=== PATIENT | female | born 1955 | race Caucasian/White ===

== ENCOUNTER 2017-03-25 09:32 | Inpatient (IN) ==
[2017-03-26] MEDS ORDERED: Insulin DETEMIR 100 UNIT/ML per UNIT SQ ONE (01:30)
[2017-03-26 05:56] LABS: Basophils % 0.4 %; Eosinophils # 0.4 K/mcL (0.0-0.6); Hemoglobin 10.2 g/dL (11.5-15.4); Immature Granulocytes % 0.7 % (0-4); Lymphocytes # 2.8 K/mcL (0.6-4.6); Lymphocytes % 31.1 %; Mean Corpuscular HGB Conc 32.9 g/dL (31.6-35.5); Mean Corpuscular Hemoglobin 28.7 pg (28.0-33.3); Mean Corpuscular Volume 87.1 fL (83.0-100.0); Mean Platelet Volume 10.7 fL (9.4-12.4); Monocytes # 0.8 K/mcL (0.0-1.3); Monocytes % 8.4 %; Platelet Count 278 K/mcL (140-400); Red Blood Count 3.56 M/mcL (3.82-4.97); Red Cell Distribution Width 14.9 % (11.5-14.5); Segmented Neutrophils % 55.4 %
[2017-03-26 06:07] LABS: Prothrombin Time 10.8 Seconds (9.4-12.1)
[2017-03-26 06:08] LABS: BUN/Creatinine Ratio 17 (6-26); Blood Urea Nitrogen 13 mg/dL (7-20); Carbon Dioxide 26 mEq/L (19-29); Chloride 100 mEq/L (98-109); Glucose 315 mg/dL (70-99); Osmolality,Calculated 290 (280-300); Potassium 4.4 mEq/L (3.5-4.5); Sodium 134 mEq/L (136-145); eGFR For African Americans > 60 (> 60); eGFR For Non-African Americans > 60 (> 60)
[2017-03-26] MEDS: Aspirin Enteric Coated 81 MG Tablet PO SCH (08:35)
[2017-03-26] MEDS: Insulin LISPRO 300 UNITS/3 ML VIAL SQ SCH ×4 (08:35→21:18)
[2017-03-26] MEDS: *HR* Enoxaparin 40 MG/0.4 ML SYRINGE SQ SCH (08:39)
--- NOTE | 2017-03-26 13:28 | Physical Med Progress Note ---
Date of Encounter: 03/26/17 Time of Encounter: 13:22 Physical Medicine-PN: Subj Interval history: PMR PCC Note Patient admitted for rehabilitation following NSTEMI. Patient is also s/p a left transtibial amputation. Patient was admitted for medical deconditioning. Patient is under isolation due to MRSA. Patient has a decubitus ulcer on the right heel. Patient is min A for bed mobility. She is max A for ambulation. Will focus on transfers and wheelchair mobility. Will assess and determine discuss charge needs. - Constitutional Vitals: Vital Signs Temp Pulse Resp BP Pulse Ox 03/26/17 11:08 83 18 102/54 96 03/26/17 08:00 98.4 F 83 18 102/54 96 03/26/17 04:40 98.3 F 88 18 108/81 99 03/26/17 03:04 96 03/25/17 23:51 98.3 F 82 18 103/65 96 Intake and Output 03/25/17 03/26/17 03/26/17 23:59 07:59 15:59 Intake Total 440 / 440 Output Total 400 / 400 Balance 40 / 40 Intake: Oral 440 / 440 Output: Urine 400 / 400 Other: Meal Lunch Percent of Meal Consumed 100% Stool Size Small Moderate Stool Consistency soft soft Stool Characteristics Normal for Patient Stool Color Brown Brown # Voids 1 1 # Bowel Movements 1 Weight 58.513 kg Blood Glucose* 220 Patient Weight 03/26/17 23:59 Weight 58.513 kg Physical Medicine-PN: Obj Data - Labs CBC & Chem 7: 03/26/17 05:20 03/26/17 05:20 Labs: Laboratory Results - last 24 hr 03/26/17 03/26/17 03/26/17 02:44 05:20 05:20 WBC 9.0 RBC 3.56 L Hgb 10.2 L Hct 31.0 L MCV 87.1 MCH 28.7 MCHC 32.9 RDW 14.9 H Plt Count 278 MPV 10.7 Immature Gran % 0.7 Seg Neutrophils % 55.4 Lymphocytes % 31.1 Monocytes % 8.4 Eosinophils % 4.0 Basophils % 0.4 Neutrophils # 5.0 Lymphocytes # 2.8 Monocytes # 0.8 Eosinophils # 0.4 Basophils # 0.0 PT INR APTT 29.1 Sodium Potassium Chloride Carbon Dioxide BUN Creatinine Est GFR ( Amer) Est GFR (Non-Af Amer) BUN/Creatinine Ratio Glucose POC Glucose 350 H Calculated Osmolality Calcium 03/26/17 03/26/17 03/26/17 05:20 05:20 07:21 WBC RBC Hgb Hct MCV MCH MCHC RDW Plt Count MPV Immature Gran % Seg Neutrophils % Lymphocytes % Monocytes % Eosinophils % Basophils % Neutrophils # Lymphocytes # Monocytes # Eosinophils # Basophils # PT 10.8 INR 1.0 APTT Sodium 134 L Potassium 4.4 Chloride 100 Carbon Dioxide 26 BUN 13 Creatinine 0.76 Est GFR ( Amer) > 60 Est GFR (Non-Af Amer) > 60 BUN/Creatinine Ratio 17 Glucose 315 H POC Glucose 220 H Calculated Osmolality 290 Calcium 9.0 03/26/17 10:26 WBC RBC Hgb Hct MCV MCH MCHC RDW Plt Count MPV Immature Gran % Seg Neutrophils % Lymphocytes % Monocytes % Eosinophils % Basophils % Neutrophils # Lymphocytes # Monocytes # Eosinophils # Basophils # PT INR APTT Sodium Potassium Chloride Carbon Dioxide BUN Creatinine Est GFR ( Amer) Est GFR (Non-Af Amer) BUN/Creatinine Ratio Glucose POC Glucose 38 L* Calculated Osmolality Calcium - ABG Interpretation ABG results: PT/INR, D-dimer PT 10.8 Seconds (9.4-12.1) 03/26/17 05:20 Consult Discharge Plan - Plan Referrals: Sara Asher MD [Primary Care Provider] -
[2017-03-26] MEDS: *HR* HYDROcodone/Acet 5/325 mg TABLET PO PRN (13:54)
--- NOTE | 2017-03-26 13:55 | Psychological Evaluation ---
Date of Encounter: 03/26/17 Time of Encounter: 09:30 History of Present Illness History of present illness: Ms. Mantilla is a 61 year old female who was admitted after a BKA. The patient underwent 4 surgeries during a 4 tanisha period. She underwent BKA on 03/02/17. PMH includes insulin dependent diabetes, cardiac issues, and recent angioplasty. 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 She has 1 daughter. [place] [place]Emotional Assessment - Emotional Status Additional Findings: The patient was alert and oriented. Recent and remote memories were intact. The patient presented a logical and coherent history Mrs. Mantilla became tearful during the clinical interview secondary to the recent and extensive changes in her lifestyle. She did not want to consider medication or psychotherapy. Assessment & Plan - Prognosis Prognosis: Good
--- NOTE | 2017-03-26 14:07 | Internal Med History&Physical ---
Date of Encounter: 03/26/17 Time of Encounter: 14:04 Assessment and Plan (1) STEMI (ST elevation myocardial infarction) Current visit: Yes Status: Acute The patient 2 weeks after BK amputation approximately suffered a myocardial infarction. This added to her deconditioning Qualifiers: Involved coronary artery: unspecified coronary artery Qualified Code(s): I21.3 - ST elevation (STEMI) myocardial infarction of unspecified site (2) S/P BKA (below knee amputation) Current visit: Yes Status: Acute Patient has vascular disease due to diabetes and lost the leg due to chronic infection. Qualifiers: Laterality: left Qualified Code(s): Z89.512 - Acquired absence of left leg below knee (3) MRSA (methicillin resistant staph aureus) culture positive Current visit: No Status: Acute This was in the right heel. (4) Diabetes Current visit: Yes Status: Acute Were aware of it and following blood sugars. They seem to be labile Qualifiers: Diabetes mellitus type: type 1 Diabetes mellitus complication status: with circulatory complication Diabetes mellitus complication detail: with other circulatory complications Qualified Code(s): E10.59 - Type 1 diabetes mellitus with other circulatory complications Internal Medicine - H&P: HPI Chief complaint: Patient undergone a BK amputation 2 weeks prior to the last presentation. Admitted From: Hospital to Hospital Transfer Plans for Post Hospital Care: Home History of present illness: Ms. Mantilla is a 61 year old female As mentioned the patient had several weeks prior to this presentation a BK amputation due to vascular disease probably complications of diabetes. The patient then suffered chest pain discomfort was diagnosed with a STEMI. After treatment for that she was very deconditioned and subsequently was sent here for rehabilitation. She has developed a decubitus on the remaining heel and attention is being placed on removing pressure on that. Past Med Surg Social Fam HX - Past Medical History Medical history: coronary artery disease, diabetes, hyperlipidemia, hypertension , myocardial infarction Psychiatric history: no psych history - Past Surgical History Surgical History: angioplasty/stent, coronary bypass (CABG) - Social History Smoking Status: Former smoker Smokeless Tobacco Status: No Alcohol use: none Drug use: none Internal Medicine - H&P: Meds 3 Allergy/AdvReac Type Severity Reaction Status Date / Time Amoxicillin [From Augmentin] AdvReac Gastrointestinal Verified 03/25/17 22:55 Upset clavulanic acid AdvReac Gastrointestinal Verified 03/25/17 22:55 [From Augmentin] Upset Oxycodone AdvReac Gastrointestinal Verified 03/25/17 22:55 Upset All Systems PM: A 10-system review of systems was performed and is negative for pertinent findings except as documented above in the HPI. - Constitutional Constitutional: no anorexia, no chills, no excessive sweating, no fatigue, no fever(s), no falls, no lethargy, no malaise, no night sweats, no weakness, no weight gain, no weight loss - EENT Eyes: no blurry vision, no change in vision, no decreased night vision, no diplopia, no discharge, no dry eye, no floaters, no irritation, no itchy eyes, no loss of peripheral vision, no loss of vision, no pain, no photophobia, no seeing flashes, no spots in vision, no tunnel vision, no other visual disturbances Ears: no decreased hearing, no ear discharge, no ear pain, no tinnitus, no other Nose, mouth and throat: no bleeding gums, no change in voice, no dental pain, no dry mouth, no dysphagia, no epistaxis, no facial pain, no lip swelling, no mouth lesions, no mouth pain, no nasal congestion, no nasal obstruction, no neck mass, no neck pain, no nose pain, no odynophagia, no post-nasal drip, no sinus pain, no sinus pressure, no sore throat, no throat swelling, no tongue swelling - Breasts Breasts: no change in shape, no mass, no pain, no nipple discharge, no skin changes, no swelling - Cardiovascular Cardiovascular ROS IM: no claudication, no diaphoresis, no dyspnea, no dyspnea on exertion, no edema, no irregular heart rhythm, no lightheadedness, no orthopnea, no palpitations, no paroxysmal nocturnal dyspnea, no syncope - Respiratory Respiratory: dyspnea, no cough, no hemoptysis, no dyspnea on exertion, no wheezing, no snoring, no stridor, no pain on inspiration, no chest congestion, no excessive phlegm production, no change in phlegm color, no pain with cough - Gastrointestinal Gastrointestinal: no abdominal pain, no belching, no bloating, no change in bowel habits, no change in stool character, no coffee ground emesis, no constipation, no cramping, no diarrhea, no dyspepsia, no dysphagia, no early satiety, no fecal incontinence, no heartburn, no hematemesis, no hematochezia, no loose stools, no melena, no nausea, no odynophagia, no tenesmus, no vomiting - Genitourinary Genitourinary: no abnormal menses, no abnormal vaginal bleeding, no amenorrhea, no breast change in shape, no breast mass, no breast pain, no breast skin changes, no breast swelling, no change in libido, no change in urinary stream, no difficulty conceiving, no difficulty urinating, no difficulty voiding, no dyspareunia, no dysuria, no flank pain, no genital lesions, no genital pruritis , no hematuria, no hot flashes, no light periods, no menorrhagia, no metrorrhagia (N?), no nipple discharge, no nocturia, no pelvic pain, no post void dribbling, no prolapse symptoms, no sexual dysfunction, no urinary incontinence, no urinary urgency, no vaginal discharge, no vaginal dryness, no vaginal odor, no vaginal pruritis Additional comments: N/A - Musculoskeletal Musculoskeletal ROS IM: no arthralgias, no atrophy, no back pain, no deformity, no joint swelling, no limited range of motion, no muscle cramps, no muscle weakness, no myalgias, no neck pain, no numbness, no stiffness, no tingling Additional comments: left BKA - Integumentary Integumentary IM: non-healing lesions, sores, no erythema, no new lesions, no pruritus, no rash, no skin ulcer, no unusual bruising, no jaundice Additional comments: Decubiti wound heal - Neurological Neurological ROS: no abnormal gait, no abnormal hearing, no abnormal movements, no abnormal speech, no behavioral changes, no burning sensations, no confusion, no convulsions, no disequilibrium, no dizziness, no lack of coordination, no loss of vision, no memory loss, no numbness, no paresthesias, no radicular pain , no restless legs, no tingling, no tremor(s), no vertigo, no weakness - Psychiatric Psychiatric: no abnormal sleep pattern, no anhedonia, no anxiety, no auditory hallucinations, no behavioral changes, no change in appetite, no change in libido, no confusion, no depression, no difficulty concentrating, no hopelessness, no irritability, no memory loss, no mood swings, no panic attacks , no paranoia, no suicidal ideation, no visual hallucinations - Endocrine Endocrine IM: no cold intolerance, no deeping of the voice, no excessive sweating, no fatigue, no flushing, no heat intolerance, no polydipsia, no polyphagia, no polyuria - Hematologic/Lymphatic Hematologic/Lymphatic: no easy bleeding, no easy bruising, no lymphadenopathy - Allergic/Immunologic Allergic/Immunologic: no tongue swelling, no throat swelling, no itchy eyes, no seasonal rhinorrhea, no uticaria, no wheezing, no GI upset with certain foods, no lip swelling - Constitutional Vitals: Temp Pulse Resp BP Pulse Ox 97.7 F 95 18 120/63 18 03/26/17 13:59 03/26/17 13:59 03/26/17 13:59 03/26/17 13:59 03/26/17 13:59 - Head Head exam: Present: atraumatic, normal inspection, normocephalic - Neck Neck exam general surgery: Present: supple, trachea midline. Absent: lymphadenopathy - Respiratory Respiratory exam: Present: CTAB. Absent: accessory muscle use, rales, rhonchi, wheezes - Cardiovascular Cardiovascular exam: Present: RRR, +S1, +S2. Absent: diastolic murmur, gallop, rubs, systolic murmur - GI/Abdominal GI/Abdominal exam: Present: normal bowel sounds, soft, no peritoneal signs. Absent: distended, tenderness Internal Med - H&P Results - Labs CBC & Chem 7: 04/01/17 12:50 03/31/17 05:00 Labs: Short CBC 03/26/17 Range/Units 05:20 WBC 9.0 (4.3-11.1) K/mcL Hgb 10.2 L (11.5-15.4) g/dL Hct 31.0 L (35.3-44.9) % Plt Count 278 (140-400) K/mcL Neutrophils # 5.0 (1.6-8.9) K/mcL BMP 03/26/17 05:20 Sodium 134 L Potassium 4.4 Chloride 100 Carbon Dioxide 26 BUN 13 Creatinine 0.76 Glucose 315 H Calcium 9.0 Lab appears to be stable at this time blood sugars are noted to be elevated
[2017-03-26] MEDS ORDERED: D5% in Water 1,000 ML IVC PRN (14:58)
[2017-03-26] MEDS ORDERED: Dextrose Gel 15 GM PO PRN ×2 (14:58)
[2017-03-26] MEDS ORDERED: *HR* Dextrose 50 % in Water (Syg) 50 ML SYRINGE IVP PRN (14:58)
[2017-03-26] MEDS: Insulin DETEMIR 100 UNIT/ML X5UNITS SQ SCH (21:18)
[2017-03-27] MEDS: Insulin LISPRO 300 UNITS/3 ML VIAL SQ SCH ×4 (08:07→21:16)
[2017-03-27] MEDS: Aspirin Enteric Coated 81 MG Tablet PO SCH (09:12)
[2017-03-27] MEDS: *HR* Enoxaparin 40 MG/0.4 ML SYRINGE SQ SCH (09:12)
[2017-03-27] MEDS: *HR* HYDROcodone/Acet 5/325 mg TABLET PO PRN ×2 (09:34→18:08)
--- NOTE | 2017-03-27 12:43 | Internal Med Progress Note ---
Date of Encounter: 04/03/17 Time of Encounter: 12:41 - Assessment and plan (1) STEMI (ST elevation myocardial infarction) Current Visit: Yes Status: Acute Assessment and plan: Patient is somewhat deconditioned after the amputation and then the STEMI. Qualifiers: Involved coronary artery: unspecified coronary artery Qualified Code(s): I21.3 - ST elevation (STEMI) myocardial infarction of unspecified site (2) S/P BKA (below knee amputation) Current Visit: Yes Status: Acute Assessment and plan: She is 3 weeks post amputation left lower extremity. She had a BKA done Qualifiers: Laterality: left Qualified Code(s): Z89.512 - Acquired absence of left leg below knee (3) MRSA (methicillin resistant staph aureus) culture positive Current Visit: No Status: Acute Assessment and plan: This is by history (4) Diabetes Current Visit: Yes Status: Acute Assessment and plan: As we have said she has a 40 year history of type 1 diabetes. And she has been on insulin the entire time Qualifiers: Diabetes mellitus type: type 1 Diabetes mellitus complication status: with circulatory complication Diabetes mellitus complication detail: with other circulatory complications Qualified Code(s): E10.59 - Type 1 diabetes mellitus with other circulatory complications - Time Spent With Patient less than 15 minutes - Subjective Interval history: Patient underwent amputation several weeks ago. Then presented with discomfort which turned out to be up [place]. She is stable at this point working with the therapist. Patient is a 40 year diabetic type I. And has lots of vascular disease. She has a decubitus on the present foot. See her - Constitutional Vitals: Temp Pulse Resp BP Pulse Ox 98.4 F 108 18 137/78 97 03/27/17 07:00 03/27/17 07:00 03/27/17 07:00 03/27/17 07:00 03/27/17 07:00 - Head Head exam: Present: atraumatic, normal inspection, normocephalic - Neck Neck exam general surgery: Present: supple, trachea midline. Absent: lymphadenopathy - Respiratory Respiratory exam: Present: CTAB. Absent: accessory muscle use, rales, rhonchi, wheezes - Cardiovascular Cardiovascular exam: Present: RRR, +S1, +S2. Absent: diastolic murmur, gallop, rubs, systolic murmur Internal Medicine: Result - Labs CBC & Chem 7: 04/01/17 12:50 03/31/17 05:00 Labs: Lab is stable - ABG Interpretation ABG results: PT/INR, D-dimer PT 10.8 Seconds (9.4-12.1) 03/26/17 05:20 Consult Discharge Plan - Plan Referrals: sierra viveros [Other] - 04/08/17 10:30 am Francis Polk [Other] - 04/04/17 2:25 pm Sara Asher MD [Primary Care Provider] - 04/07/17 2:30 pm (follow up with primary physician)
[2017-03-27] MEDS: Insulin DETEMIR 100 UNIT/ML X5UNITS SQ SCH (21:17)
[2017-03-28] MEDS: Insulin LISPRO 300 UNITS/3 ML VIAL SQ SCH ×3 (07:31→16:53)
[2017-03-28] MEDS: Aspirin Enteric Coated 81 MG Tablet PO SCH (08:40)
[2017-03-28] MEDS: *HR* Enoxaparin 40 MG/0.4 ML SYRINGE SQ SCH (08:41)
[2017-03-28] MEDS ORDERED: D5% in Water 1,000 ML IVC PRN (11:34)
[2017-03-28] MEDS ORDERED: *HR* Dextrose 50 % in Water (Syg) 50 ML SYRINGE IVP PRN (11:34)
[2017-03-28] MEDS ORDERED: Dextrose Gel 15 GM PO PRN ×2 (11:34)
[2017-03-28] MEDS ORDERED: Insulin LISPRO 300 UNITS/3 ML VIAL SQ SCH (21:00)
[2017-03-28] MEDS ORDERED: Insulin LISPRO 300 UNITS/3 ML VIAL SQ ONE (21:09)
[2017-03-29] MEDS ORDERED: Insulin LISPRO 300 UNITS/3 ML VIAL SQ ONE ×3 (04:42→21:09)
[2017-03-29] MEDS: *HR* HYDROcodone/Acet 5/325 mg TABLET PO PRN (08:45)
[2017-03-29] MEDS: Aspirin Enteric Coated 81 MG Tablet PO SCH (08:45)
[2017-03-29] MEDS: *HR* Enoxaparin 40 MG/0.4 ML SYRINGE SQ SCH (08:46)
[2017-03-29] MEDS: Insulin LISPRO 300 UNITS/3 ML VIAL SQ SCH ×3 (08:46→17:07)
--- NOTE | 2017-03-29 12:44 | Internal Med Progress Note ---
Date of Encounter: 03/29/17 Time of Encounter: 12:15 - Assessment and plan (1) S/P BKA (below knee amputation) Current Visit: Yes Status: Acute Assessment and plan: Continue to work with therapists. Qualifiers: Laterality: left Qualified Code(s): Z89.512 - Acquired absence of left leg below knee (2) Diabetes Current Visit: Yes Status: Acute Assessment and plan: - Complicated by hypoglycemia episodes, for which long actin and qhs insulin were discontinued, but then the patient developed hyperglycemia last night. - Continue SSI and hypoglycemia protocol for now. Depending on how much insulin the patient requires over the weekend, she may need a lower dose of long-acting insulin started. Qualifiers: Diabetes mellitus type: type 1 Diabetes mellitus complication status: with circulatory complication Qualified Code(s): E10.59 - Type 1 diabetes mellitus with other circulatory complications - Time Spent With Patient less than 15 minutes - Subjective Interval history: - Slid down this morning from toilet, no pain, no LOC. - Sugar has been high overnight, requiring some insulin. - Constitutional Vitals: Temp Pulse Resp BP Pulse Ox 98.5 F 86 16 119/75 98 03/29/17 07:30 03/29/17 07:30 03/29/17 07:30 03/29/17 07:30 03/29/17 07:30 Exam: Gen: A&Ox3, NAD. HEENT: NCAT. Neck: No palpable thyromegaly. Lipoma noted around left post-cervical region ( stable over the past 15 years per the patient). CV: RRR, S1S2. No murmur. Capillary refill < 2 seconds. Pulm: CTAB. Abd: (+)BS. NDNT. Neuro: Non-focal. Skin: No rash. Ext: Left BKA noted. No pitting edema. Internal Medicine: Result - Labs CBC & Chem 7: 03/26/17 05:20 03/26/17 05:20 - ABG Interpretation ABG results: PT/INR, D-dimer PT 10.8 Seconds (9.4-12.1) 03/26/17 05:20 Consult Discharge Plan - Plan Referrals: Sara Asher MD [Primary Care Provider] -
[2017-03-30] MEDS: Insulin LISPRO 300 UNITS/3 ML VIAL SQ SCH ×3 (07:36→17:01)
[2017-03-30] MEDS: Aspirin Enteric Coated 81 MG Tablet PO SCH (09:35)
[2017-03-30] MEDS: *HR* Enoxaparin 40 MG/0.4 ML SYRINGE SQ SCH (09:36)
--- NOTE | 2017-03-30 12:49 | Internal Med Progress Note ---
Date of Encounter: 03/30/17 Time of Encounter: 12:20 - Assessment and plan (1) S/P BKA (below knee amputation) Current Visit: Yes Status: Acute Assessment and plan: Continue to work with therapists. Qualifiers: Laterality: left Qualified Code(s): Z89.512 - Acquired absence of left leg below knee (2) Diabetes Current Visit: Yes Status: Acute Assessment and plan: - Complicated by hypoglycemia episodes, for which long actin and qhs insulin were discontinued on Friday, but then the patient developed hyperglycemia at night time and in the morning over the weekend. - Will re-start the patient's insulin detemir, but at 12 units qhs (50% reduction from before). I encouraged the patient to immediately notify us in case she were to experience any hypoglycemic symptoms; patient expressed understanding and appreciation. Nursing staff also aware. - Continue SSI and hypoglycemia protocol. Qualifiers: Diabetes mellitus type: type 1 Diabetes mellitus complication status: with circulatory complication Qualified Code(s): E10.59 - Type 1 diabetes mellitus with other circulatory complications - Time Spent With Patient less than 15 minutes - Subjective Interval history: - Doing well. No particular concern/complaint. - Patient believes her sugars are running to high without the long-acting insulin. - Constitutional Vitals: Temp Pulse Resp BP Pulse Ox 98.2 F 96 15 123/67 97 03/30/17 07:00 03/30/17 07:00 03/30/17 07:00 03/30/17 07:00 03/30/17 07:00 Exam: Gen: A&Ox3, NAD. HEENT: NCAT. Neck: No palpable thyromegaly. Stable lipoma noted around left post-cervical region. CV: RRR, S1S2. No murmur. Capillary refill < 2 seconds. Pulm: CTAB. Abd: (+)BS. NDNT. Neuro: Non-focal. Skin: No rash. Ext: Left BKA noted. No pitting edema. No calf tenderness Internal Medicine: Result - Labs CBC & Chem 7: 03/26/17 05:20 03/26/17 05:20 - ABG Interpretation ABG results: PT/INR, D-dimer PT 10.8 Seconds (9.4-12.1) 03/26/17 05:20 Consult Discharge Plan - Plan Referrals: Sara Asher MD [Primary Care Provider] -
[2017-03-30] MEDS: Insulin DETEMIR 100 UNIT/ML X5UNITS SQ SCH (20:47)
[2017-03-31 05:45] LABS: Basophils # 0.1 K/mcL (0.0-0.2); Basophils % 0.7 %; Eosinophils # 0.4 K/mcL (0.0-0.6); Eosinophils % 3.3 %; Hemoglobin 11.9 g/dL (11.5-15.4); Immature Granulocytes % 0.5 % (0-4); Lymphocytes # 4.8 K/mcL (0.6-4.6); Lymphocytes % 44.8 %; Mean Corpuscular Hemoglobin 29.4 pg (28.0-33.3); Mean Corpuscular Volume 86.4 fL (83.0-100.0); Mean Platelet Volume 10.8 fL (9.4-12.4); Monocytes # 0.7 K/mcL (0.0-1.3); Monocytes % 6.6 %; Neutrophils # 4.7 K/mcL (1.6-8.9); Platelet Count 291 K/mcL (140-400); Red Blood Count 4.05 M/mcL (3.82-4.97); Red Cell Distribution Width 15.3 % (11.5-14.5); Segmented Neutrophils % 44.1 %
[2017-03-31 06:03] LABS: BUN/Creatinine Ratio 23 (6-26); Blood Urea Nitrogen 17 mg/dL (7-20); Carbon Dioxide 25 mEq/L (19-29); Chloride 99 mEq/L (98-109); Glucose 51 mg/dL (70-99); Osmolality,Calculated 285 (280-300); Sodium 138 mEq/L (136-145); eGFR For African Americans > 60 (> 60); eGFR For Non-African Americans > 60 (> 60)
[2017-03-31] MEDS: Aspirin Enteric Coated 81 MG Tablet PO SCH (08:16)
[2017-03-31] MEDS: Insulin LISPRO 300 UNITS/3 ML VIAL SQ SCH ×3 (08:18→17:42)
[2017-03-31] MEDS: *HR* Enoxaparin 40 MG/0.4 ML SYRINGE SQ SCH (08:20)
--- NOTE | 2017-03-31 14:26 | Internal Med Progress Note ---
Date of Encounter: 04/03/17 Time of Encounter: 14:23 - Assessment and plan (1) STEMI (ST elevation myocardial infarction) Current Visit: Yes Status: Acute Assessment and plan: Ration had a STEMI 2 weeks after an amputation. She has long-term history of insulin-dependent diabetes. Type I Qualifiers: Involved coronary artery: unspecified coronary artery Qualified Code(s): I21.3 - ST elevation (STEMI) myocardial infarction of unspecified site (2) S/P BKA (below knee amputation) Current Visit: Yes Status: Acute Assessment and plan: This was done following the stump. Discussed with Dr. Garcia about removing the karo because they are better tissue. Qualifiers: Laterality: left Qualified Code(s): Z89.512 - Acquired absence of left leg below knee (3) MRSA (methicillin resistant staph aureus) culture positive Current Visit: No Status: Acute Assessment and plan: This was by history (4) Diabetes Current Visit: Yes Status: Acute Assessment and plan: As I mentioned she is a long-term insulin-dependent type 1 diabetic. Qualifiers: Diabetes mellitus type: type 1 Diabetes mellitus complication status: with circulatory complication Diabetes mellitus complication detail: with other circulatory complications Qualified Code(s): E10.59 - Type 1 diabetes mellitus with other circulatory complications - Time Spent With Patient less than 15 minutes - Subjective Interval history: I will still have low blood sugar but they are very variable and sometimes it is real high. I got a watch the at bedtime blood sugars to give her a snack. Also I called Dr. Dr. Rodriguez and he agreed that we could remove the karo. We will Steri-Strip. Just in case. Patient will need wheelchair. She is unable to use a walker because she has had a BK amputation on the right and is unable to operate a walker with one leg. She will needed for safe transfers and also to get to her food in bathroom. - Constitutional Vitals: Temp Pulse Resp BP Pulse Ox 98.2 F 98 18 96/56 100 03/31/17 07:15 03/31/17 07:15 03/31/17 07:15 03/31/17 08:14 03/31/17 07:15 - Head Head exam: Present: atraumatic, normal inspection, normocephalic - Neck Neck exam general surgery: Present: supple, trachea midline. Absent: lymphadenopathy - Respiratory Respiratory exam: Present: CTAB. Absent: accessory muscle use, rales, rhonchi, wheezes - Cardiovascular Cardiovascular exam: Present: RRR, +S1, +S2. Absent: diastolic murmur, gallop, rubs, systolic murmur - GI/Abdominal GI/Abdominal exam: Present: normal bowel sounds, soft, no peritoneal signs. Absent: distended, tenderness Internal Medicine: Result - Labs CBC & Chem 7: 04/01/17 12:50 03/31/17 05:00 Labs: Short CBC 03/31/17 Range/Units 05:00 WBC 10.7 (4.3-11.1) K/mcL Hgb 11.9 D (11.5-15.4) g/dL Hct 35.0 L (35.3-44.9) % Plt Count 291 (140-400) K/mcL Neutrophils # 4.7 (1.6-8.9) K/mcL BMP 03/31/17 05:00 Sodium 138 Potassium 4.0 Chloride 99 Carbon Dioxide 25 BUN 17 Creatinine 0.74 Glucose 51 L Calcium 10.0 Except for blood sugars being labile patient's labs stable. - ABG Interpretation ABG results: PT/INR, D-dimer PT 10.8 Seconds (9.4-12.1) 03/26/17 05:20 Consult Discharge Plan - Plan Referrals: sierra viveros [Other] - 04/08/17 10:30 am Francis Polk [Other] - 04/04/17 2:25 pm Sara Asher MD [Primary Care Provider] - 04/07/17 2:30 pm (follow up with primary physician)
[2017-03-31] MEDS: Zinc Sulfate 220 MG CAPSULE PO SCH ×2 (17:38→20:44)
[2017-03-31] MEDS: Ascorbic Acid 500 MG TABLET PO SCH ×2 (17:38→20:44)
[2017-04-01] MEDS: Insulin LISPRO 300 UNITS/3 ML VIAL SQ SCH ×3 (05:42→16:20)
[2017-04-01] MEDS: Aspirin Enteric Coated 81 MG Tablet PO SCH (08:06)
[2017-04-01] MEDS: Ascorbic Acid 500 MG TABLET PO SCH ×2 (08:06→21:58)
[2017-04-01] MEDS: *HR* Enoxaparin 40 MG/0.4 ML SYRINGE SQ SCH (08:06)
[2017-04-01] MEDS: Zinc Sulfate 220 MG CAPSULE PO SCH ×2 (08:06→21:58)
--- NOTE | 2017-04-01 11:51 | Internal Med Progress Note ---
Date of Encounter: 04/03/17 Time of Encounter: 11:49 - Assessment and plan (1) STEMI (ST elevation myocardial infarction) Current Visit: Yes Status: Acute Assessment and plan: Patient had a STEMI about a week after her amputation. 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 She is in a room by herself and precautions are being taken (4) Diabetes Current Visit: Yes Status: Acute Assessment and plan: Christo has a 40 year history of type 1 diabetes with insulin use. Qualifiers: Diabetes mellitus type: type 1 Diabetes mellitus complication status: with circulatory complication Diabetes mellitus complication detail: with other circulatory complications Qualified Code(s): E10.59 - Type 1 diabetes mellitus with other circulatory complications - Time Spent With Patient less than 15 minutes - Subjective Interval history: 5:30 this morning the patient's blood sugar 500 and now around prior to lunchtime is 502. Given her insulin sliding scale and restored her at bedtime insulin. 2 prior days the blood sugars were very low in the morning. In the 30s. So right now because of the increased inguinal rule out any acute infection. She will get a UA CBC a chest x-ray and I will follow up. - Constitutional Vitals: Temp Pulse Resp BP Pulse Ox 99.3 F 108 16 112/62 98 04/01/17 08:00 04/01/17 08:00 04/01/17 08:00 04/01/17 08:00 04/01/17 08:00 - Head Head exam: Present: atraumatic, normocephalic - Neck Neck exam general surgery: Present: supple, trachea midline. Absent: lymphadenopathy - Respiratory Respiratory exam: Present: CTAB. Absent: accessory muscle use, rales, rhonchi, wheezes - Cardiovascular Cardiovascular exam: Present: RRR, +S1, +S2. Absent: diastolic murmur, gallop, rubs, systolic murmur - GI/Abdominal GI/Abdominal exam: Present: normal bowel sounds, soft, no peritoneal signs. Absent: distended, tenderness - Expanded Lower Extremities Exam Knee exam: Present: normal inspection (Patient stump did not show any acute infection on last exam. In addition the heel of the other foot looks clean and dry scar over it and is currently being seen by wound care) Internal Medicine: Result - Labs CBC & Chem 7: 04/01/17 12:50 03/31/17 05:00 Labs: Lab is stable we will be repeating CBC to rule out any change. - ABG Interpretation ABG results: PT/INR, D-dimer PT 10.8 Seconds (9.4-12.1) 03/26/17 05:20 Consult Discharge Plan - Plan Referrals: [facility] [Other] - 04/08/17 10:30 am Francis Polk [Other] - 04/04/17 2:25 pm Sara Asher MD [Primary Care Provider] - 04/07/17 2:30 pm (follow up with primary physician)
[2017-04-01 12:55] LABS: Basophils # 0.1 K/mcL (0.0-0.2); Basophils % 0.5 %; Eosinophils # 0.2 K/mcL (0.0-0.6); Hematocrit 34.5 % (35.3-44.9); Hemoglobin 11.8 g/dL (11.5-15.4); Immature Granulocytes % 0.3 % (0-4); Lymphocytes # 2.5 K/mcL (0.6-4.6); Lymphocytes % 21.4 %; Mean Corpuscular HGB Conc 34.2 g/dL (31.6-35.5); Mean Corpuscular Hemoglobin 29.4 pg (28.0-33.3); Mean Platelet Volume 11.1 fL (9.4-12.4); Monocytes # 0.5 K/mcL (0.0-1.3); Monocytes % 3.8 %; Neutrophils # 8.5 K/mcL (1.6-8.9); Platelet Count 275 K/mcL (140-400); Red Blood Count 4.01 M/mcL (3.82-4.97); Red Cell Distribution Width 15.4 % (11.5-14.5)
[2017-04-01] MEDS: Insulin DETEMIR 100 UNIT/ML X5UNITS SQ SCH (21:58)
[2017-04-02] MEDS: Insulin LISPRO 300 UNITS/3 ML VIAL SQ SCH ×4 (08:04→16:50)
[2017-04-02] MEDS: Ascorbic Acid 500 MG TABLET PO SCH ×2 (08:35→22:10)
[2017-04-02] MEDS: Zinc Sulfate 220 MG CAPSULE PO SCH ×2 (08:35→22:10)
[2017-04-02] MEDS: *HR* Enoxaparin 40 MG/0.4 ML SYRINGE SQ SCH (08:35)
[2017-04-02] MEDS: Aspirin Enteric Coated 81 MG Tablet PO SCH (08:35)
--- NOTE | 2017-04-02 14:04 | Physical Med Progress Note ---
Date of Encounter: 04/02/17 Time of Encounter: 13:59 Physical Medicine-PN: Subj Interval history: PMR PCC Note Patient is SBA for slide board transfers. Patient mod I for bed mobility, SBA/ mod I for wheelchair mobility. Set up with SBA for dressing, SBA for bathing. Plan for discharge to home 04/04/17 with home health. - Constitutional Vitals: Vital Signs Temp Pulse Resp BP Pulse Ox 04/02/17 08:00 97.9 F 71 16 110/66 98 04/01/17 19:18 98.1 F 95 18 113/68 97 Intake and Output 04/01/17 04/02/17 04/02/17 23:59 07:59 15:59 Intake Total 240 / 240 240 / 240 Balance 240 / 240 240 / 240 Intake: Oral 240 / 240 240 / 240 Other: Meal Dinner Breakfast Percent of Meal Consumed 100% 100% # Voids 1 Blood Glucose* 388 224 Physical Medicine-PN: Obj Data - Labs CBC & Chem 7: 04/01/17 12:50 03/31/17 05:00 Labs: Laboratory Results - last 24 hr 04/01/17 04/01/17 04/01/17 11:11 16:06 20:07 POC Glucose 502 H* 334 H 388 H 04/02/17 04/02/17 07:53 09:12 POC Glucose 74 221 H - Impressions Impressions Chest X-Ray 04/01/17 11:47 IMPRESSION: No acute cardiopulmonary process. D/ / Gera Duggan MD / Gera Duggan MD Interpreting Provider: Gera Duggan MD - ABG Interpretation ABG results: PT/INR, D-dimer PT 10.8 Seconds (9.4-12.1) 03/26/17 05:20 Consult Discharge Plan - Plan Referrals: [facility] [Other] - 04/08/17 10:30 am Francis Polk [Other] - 04/04/17 2:25 pm Sara Asher MD [Primary Care Provider] - 04/07/17 2:30 pm (follow up with primary physician)
--- NOTE | 2017-04-02 14:39 | Rehab Psychology Progress Note ---
Date of Encounter: 04/02/17 Time of Encounter: 02:00 Subjective - Symptoms Symptoms: Patient tearful. Expressed anxious ideation. Objective - Mental Status Mental Status Changes: Patient adjusting to sudden change in discharge plans. Three week window now only 2 days. Patient had inhome visit and adapting to use of wheelchair, ramp, etc. Plans for inhome care and therapy.
[2017-04-02] MEDS: Insulin DETEMIR 100 UNIT/ML X5UNITS SQ SCH (22:10)
[2017-04-03 05:28] LABS: Bilirubin,Urine Negative (Negative); Blood,Urine Negative (Negative); Clarity,Urine Clear (Clear); Color,Urine Yellow (Yellow); Glucose,Urine (UA) 500 mg/dL (Normal); Ketones,Urine Trace mg/dL (Negative); Leukocyte Esterase,Urine Negative (Negative); Nitrite,Urine Negative (Negative); Protein,Urine Negative (Neg-Trace); Urobilinogen,Urine Normal (Normal)
[2017-04-03] MEDS: Aspirin Enteric Coated 81 MG Tablet PO SCH (08:46)
[2017-04-03] MEDS: *HR* Enoxaparin 40 MG/0.4 ML SYRINGE SQ SCH (08:46)
[2017-04-03] MEDS: Zinc Sulfate 220 MG CAPSULE PO SCH ×2 (08:46→21:58)
[2017-04-03] MEDS: Insulin LISPRO 300 UNITS/3 ML VIAL SQ SCH ×3 (08:46→17:09)
[2017-04-03] MEDS: Ascorbic Acid 500 MG TABLET PO SCH ×2 (08:46→21:58)
--- NOTE | 2017-04-03 14:11 | Internal Med Progress Note ---
Date of Encounter: 04/03/17 Time of Encounter: 14:09 - Assessment and plan (1) STEMI (ST elevation myocardial infarction) Current Visit: Yes Status: Acute Assessment and plan: Past this occurred about a week or 2 after her amputation. He came in here because she is deconditioned. Qualifiers: Involved coronary artery: unspecified coronary artery Qualified Code(s): I21.3 - ST elevation (STEMI) myocardial infarction of unspecified site (2) S/P BKA (below knee amputation) Current Visit: Yes Status: Acute Assessment and plan: She had diabetic vascular disease with chronic infection and underwent Qualifiers: Laterality: left Qualified Code(s): Z89.512 - Acquired absence of left leg below knee (3) MRSA (methicillin resistant staph aureus) culture positive Current Visit: No Status: Acute (4) Diabetes Current Visit: Yes Status: Acute Qualifiers: Diabetes mellitus type: type 1 Diabetes mellitus complication status: with circulatory complication Diabetes mellitus complication detail: with other circulatory complications Qualified Code(s): E10.59 - Type 1 diabetes mellitus with other circulatory complications - Time Spent With Patient less than 15 minutes - Subjective Interval history: Danielle is doing very well overall the stump is healing but my goodness she has labile blood sugars - Constitutional Vitals: Temp Pulse Resp BP Pulse Ox 97.0 F L 81 18 114/72 96 04/03/17 07:42 04/03/17 07:42 04/03/17 07:42 04/03/17 07:42 04/03/17 07:42 - Head Head exam: Present: atraumatic, normal inspection, normocephalic - Neck Neck exam general surgery: Present: supple, trachea midline. Absent: lymphadenopathy - Respiratory Respiratory exam: Present: CTAB. Absent: accessory muscle use, rales, rhonchi, wheezes - Cardiovascular Cardiovascular exam: Present: RRR, +S1, +S2. Absent: diastolic murmur, gallop, rubs, systolic murmur - GI/Abdominal GI/Abdominal exam: Present: normal bowel sounds, soft, no peritoneal signs. Absent: distended, tenderness Internal Medicine: Result - Labs CBC & Chem 7: 04/01/17 12:50 03/31/17 05:00 Labs: Urine 04/03/17 Range/Units 05:15 Urine Color Yellow (Yellow) Urine Clarity Clear (Clear) Urine pH 6.0 (5.0-8.0) pH Units Ur Specific [place] 1.020 (1.010-1.025) Urine Protein Negative (Neg-Trace) mg/dL Urine Glucose (UA) 500 H (Normal) mg/dL Lab is stable - ABG Interpretation ABG results: PT/INR, D-dimer PT 10.8 Seconds (9.4-12.1) 03/26/17 05:20 Consult Discharge Plan - Plan Referrals: [facility] [Other] - 04/08/17 10:30 am Francis Polk [Other] - 04/04/17 2:25 pm Sara Asher MD [Primary Care Provider] - 04/07/17 2:30 pm (follow up with primary physician)
[2017-04-03] MEDS: Insulin DETEMIR 100 UNIT/ML X5UNITS SQ SCH (21:59)
[2017-04-04 07:42] VITALS: BP 116/67
[2017-04-04] MEDS: Insulin LISPRO 300 UNITS/3 ML VIAL SQ SCH ×2 (07:47→12:17)
[2017-04-04] MEDS: *HR* Enoxaparin 40 MG/0.4 ML SYRINGE SQ SCH (08:50)
[2017-04-04] MEDS: Zinc Sulfate 220 MG CAPSULE PO SCH (08:50)
[2017-04-04] MEDS: Ascorbic Acid 500 MG TABLET PO SCH (08:50)
[2017-04-04] MEDS: Aspirin Enteric Coated 81 MG Tablet PO SCH (08:50)
--- NOTE | 2017-04-04 11:17 | Discharge Summary ---
Date of Encounter: 04/04/17 Time of Encounter: 11:15 - Discharge Diagnosis (1) STEMI (ST elevation myocardial infarction) Priority: Secondary Status: Acute Qualifiers: Involved coronary artery: unspecified coronary artery Qualified Code(s): I21.3 - ST elevation (STEMI) myocardial infarction of unspecified site (2) S/P BKA (below knee amputation) Priority: Secondary Status: Acute Qualifiers: Laterality: left Qualified Code(s): Z89.512 - Acquired absence of left leg below knee (3) MRSA (methicillin resistant staph aureus) culture positive Priority: Secondary Status: Acute (4) Diabetes Priority: Secondary Status: Acute Qualifiers: Diabetes mellitus type: type 1 Diabetes mellitus complication status: with circulatory complication Diabetes mellitus complication detail: with other circulatory complications Qualified Code(s): E10.59 - Type 1 diabetes mellitus with other circulatory complications - Discharge Medications Allergies/Adverse Reactions: 3 Allergy/AdvReac Type Severity Reaction Status Date / Time Amoxicillin [From Augmentin] AdvReac Gastrointestinal Verified 03/25/17 22:55 Upset clavulanic acid AdvReac Gastrointestinal Verified 03/25/17 22:55 [From Augmentin] Upset Oxycodone AdvReac Gastrointestinal Verified 03/25/17 22:55 Upset Date of admission: 03/25/17 21:35 Primary care physician: Sara Asher MD Consults: 03/26/17 00:40 Consult to Occupational Therapy [CONS] Routine Comment: Evaluate, develop and implement POC Reason for Consult: Patient is newly admitted as of 21:35 03/25/17. Consult to Physical Therapy [CONS] Routine Comment: Evaluate, develop and implement POC Reason for Consult: Patient is newly admitted as of 21:35 03/25/17. Consult to Recreational Therapy [CONS] Routine Comment: Evaluate, develop and implement POC Consult to Apparel Merchandiser [CONS] Routine Reason for SW Consult: Patient is new admission as of 21:35 03/25/17. Consult to Speech Therapy [CONS] Routine Comment: Evaluate, develop and implement POC Reason for Consult: speech impairment Call Completed: Yes 03/26/17 08:01 Consult to Psychology [CONS] Routine Consulting Provider: Leena Paulson Reason for Consult: rehad Call Completed: No 03/27/17 13:23 Consult to Wound Care [CONS] Routine Reason for Consult: Wound right heel Time Notified: 13:24 Call Completed: Yes Discharging clinician: Tommie Villela Anticipated date of discharge: 04/04/17 - Discharge Instructions Follow Up With: [facility] [Other] - 04/08/17 10:30 am Francis Polk [Other] - 04/04/17 2:25 pm Sara Asher MD [Primary Care Provider] - 04/07/17 2:30 pm (follow up with primary physician) Interval History: Patient had a BK amputation on the right. Then suffered a week later [place]. She is very deconditioned and was brought here for rehabilitation. Hospital course: Ms. Mantilla is a 61 year old female She will herself around the unit. She is out of the wheelchair well she tore her transfers and is going to be discharged home accompanied her family today - Time Spent with Patient Total time spent providing and/or coordinating discharge services: Less than 30 minutes - Constitutional Vitals: Temp Pulse Resp BP Pulse Ox 97.6 F 85 16 116/67 99 04/04/17 07:00 04/04/17 07:00 04/04/17 07:00 04/04/17 07:00 04/04/17 07:00
--- NOTE | 2017-04-04 11:21 | Physician Discharge Referral ---
Home Health/Hosp Referral Info Transfer to: Home Health Provider in Charge Post Discharge: PCP - Diagnosis (1) STEMI (ST elevation myocardial infarction) Priority: Secondary Status: Acute (2) S/P BKA (below knee amputation) Priority: Primary Status: Acute (3) MRSA (methicillin resistant staph aureus) culture positive Priority: Secondary Status: Acute (4) Diabetes Priority: Secondary Status: Acute - Respiratory Orders Smoking Cessation: Smoking cessation has been advised. For more information, call the [place] Tobacco Quit Line at 0-914-OPLM-NOW. - Diet/Nutrition Diet/Nutrition Orders: No Concentrated Sweets - Activity Activity Orders: Chair - Services Needed Following services are medically necessary services: Nursing, Physical Therapy, Occupational Therapy - Transfer Medications Allergies/Adverse Reactions: 3 Allergy/AdvReac Type Severity Reaction Status Date / Time Amoxicillin [From Augmentin] AdvReac Gastrointestinal Verified 03/25/17 22:55 Upset clavulanic acid AdvReac Gastrointestinal Verified 03/25/17 22:55 [From Augmentin] Upset Oxycodone AdvReac Gastrointestinal Verified 03/25/17 22:55 Upset Certification: Further, I certify that my clinical findings support that this patient is homebound (i.e. absences from home require considerable and taxing effort and are for medical reasons or muslim services or infrequently or short duration when for other reasons) because: Homebound Reason: Post-surgery restriction and or conditions limit ability to leave home Attestation: My signature below is to certify that this patient is under my care and that I, or nurse practitioner, or a physician's program services assistant working with me, has a face-to -face encounter with this patient.
== END 2017-04-04 12:36 | disposition home health service (06) | DRG 559 ==
LOC: INPGRE 21:35
PROVIDERS: ADMIT Internal Medicine; ATTEND Internal Medicine